=== PATIENT | male | born 1950 | race Two or more races ===

== ENCOUNTER → 2023-03-12 | Outpatient (CLI) | payer OTHER ==
[2023-03-12 11:28] LABS: Albumin 3.7 g/dL (3.4-5.0); BUN/Creatinine Ratio 15.2 (10.0-20.0); Calcium 8.7 mg/dL (8.5-10.1); Potassium 3.8 mmol/L (3.5-5.1)
[2023-03-12 11:33] LABS: Bilirubin, Total 1.3 mg/dL (0.2-1.0); Total Protein 7.3 g/dL (6.4-8.2)
== END | disposition home or self-care (01) ==
LOC: LAB 09:41
PROVIDERS: ATTEND Family Medicine
DX: E11.618 Type 2 diabetes mellitus with other diabetic arthropathy (principal)
CPT/HCPCS: 36415; 80053; 80061; 83036

== ENCOUNTER → 2023-09-26 | Outpatient (CLI) | payer OTHER | END | disposition home or self-care (01) | LOC: LAB 15:56 | PROVIDERS: ATTEND Nurse Practitioner Family | DX: Z12.11 Encounter for screening for malignant neoplasm of colon (principal) | CPT/HCPCS: 82270 ==

== ENCOUNTER → 2024-06-05 | Outpatient (CLI) | payer OTHER ==
[2024-06-05 07:34] LABS: Alanine Aminotransferase 18 U/L (7-40); Albumin 4.4 g/dL (3.2-4.8); Alkaline Phosphatase 85 U/L (46-116); Anion Gap 7 (5-15); Aspartate Aminotransferase 16 U/L (13-40); BUN/Creatinine Ratio 18.1 (10.0-20.0); Bilirubin, Total 1.2 mg/dL (0.2-1.0); Blood Urea Nitrogen 19 mg/dL (9-23); Calcium 9.7 mg/dL (8.7-10.4); Carbon Dioxide 27 mmol/L (20-31); Chloride 108 mmol/L (98-107); Cholesterol 151 mg/dL (< 200); Glucose 90 mg/dL (74-106); HDL Cholesterol 56 mg/dL (40-59); LDL Cholesterol 89 mg/dL (< 100); Sodium 142 mmol/L (136-145); Total Protein 7.2 g/dL (5.7-8.2); Triglycerides 44 mg/dL (< 150)
== END | disposition home or self-care (01) ==
LOC: LAB 06:11
PROVIDERS: ATTEND Family Medicine
DX: R73.09 Other abnormal glucose (principal); E78.5 Hyperlipidemia, unspecified; Q28.2 Arteriovenous malformation of cerebral vessels; Q78.2 Osteopetrosis; Z68.42 Body mass index [BMI] 45.0-49.9, adult
CPT/HCPCS: 36415; 80053; 80061; 83036

== ENCOUNTER 2025-04-07 13:11 | Outpatient (CLI) | payer OTHER | END 2025-04-07 17:00 | disposition home or self-care (01) | LOC: LAB 13:11 | PROVIDERS: ATTEND Family Medicine | DX: Z12.11 Encounter for screening for malignant neoplasm of colon (principal) | CPT/HCPCS: 82270 ==

== ENCOUNTER 2025-05-21 07:21 | Outpatient (CLI) | payer OTHER ==
[2025-05-21 07:56] LABS: Alanine Aminotransferase 14 U/L (7-40); Albumin 4.1 g/dL (3.2-4.8); Alkaline Phosphatase 74 U/L (46-116); Anion Gap 8 (5-15); BUN/Creatinine Ratio 14.4 (10.0-20.0); Bilirubin, Total 0.9 mg/dL (0.2-1.0); Blood Urea Nitrogen 15 mg/dL (9-23); Calcium 8.7 mg/dL (8.7-10.4); Carbon Dioxide 28 mmol/L (20-31); Cholesterol 151 mg/dL (< 200); HDL Cholesterol 52 mg/dL (40-59); Potassium 4.3 mmol/L (3.5-5.1); Sodium 144 mmol/L (136-145); Total Protein 6.9 g/dL (5.7-8.2); Triglycerides 40 mg/dL (< 150)
[2025-05-21 07:59] LABS: Chloride 108 mmol/L (98-107); Glucose 107 mg/dL (74-106)
[2025-05-21 08:17] LABS: Microalb/Creat Ratio, Urine < 3.0
== END 2025-05-21 17:00 | disposition home or self-care (01) ==
LOC: LAB 07:21
PROVIDERS: ATTEND Nurse Practitioner Family
DX: E11.9 Type 2 diabetes mellitus without complications (principal); E78.5 Hyperlipidemia, unspecified
CPT/HCPCS: 36415; 80053; 80061; 82043; 82570; 83036